=== PATIENT | male | born 1970 | race Two or more races ===

== ENCOUNTER 2017-09-07 22:41 | Emergency (ER) | payer OTHER ==
[2017-09-07] MEDS ORDERED: Tdap Vaccine 0.5 ml Vial (10-64 yrs) IM ONE (23:17)
--- NOTE | 2017-09-07 23:48 | ED PDOC ---
HPI: Psych/Substance Abuse Time Seen by Provider: 09/07/17 22:57 Chief Complaint (Nursing): Alcohol Ingestion Chief Complaint (Provider): Alcohol Ingestion ED Caveat: Intoxicated History Per: Patient (poor historian), EMS History/Exam Limitations: intoxication Onset/Duration Of Symptoms: Days (09/07/17) Current Symptoms Are (Timing): Still Present Modifying Factor(s): Alcohol Additional Complaint(s): 47 year old male was brought into the ED by EMS for evaluation of alcohol intoxication. Patient was drunk and found by police walking unsteady, stumbling on the street. Patient also has multiple abrasions on the body. He is a poor historian and is uncooperative. PMD: No Family Provider Past Medical History Reviewed: Historical Data, Nursing Documentation, Vital Signs Vital Signs: Last Vital Signs Temp Pulse 97 H 09/07/17 23:01 Resp 18 09/07/17 23:01 BP 151/93 H 09/07/17 23:01 Pulse Ox 95 09/07/17 23:01 - Medical History PMH: No Chronic Diseases - Surgical History Surgical History: No Surg Hx - Family History Family History: States: Unknown Family Hx - Allergies Allergies/Adverse Reactions: Allergies Allergy/AdvReac Type Severity Reaction Status Date / Time No Known Allergies Allergy Verified 09/07/17 22:50 Review of Systems ROS Statement: Except As Marked, All Systems Reviewed And Found Negative Skin: Positive for: Other (abrasions on the body) Neurological: Positive for: Other (alcohol intoxication) Physical Exam - Reviewed Nursing Documentation Reviewed: Yes Vital Signs Reviewed: Yes - Physical Exam Appears: Positive for: Well, Non-toxic, No Acute Distress Head Exam: Positive for: ATRAUMATIC, NORMAL INSPECTION, NORMOCEPHALIC Skin: Positive for: Normal Color, Warm, Dry Eye Exam: Positive for: EOMI, Normal appearance, PERRL ENT: Positive for: Other (dry blood on right nostril ) Neck: Positive for: Normal, Painless ROM, Supple. Negative for: Decreased ROM, Limited ROM Cardiovascular/Chest: Positive for: Regular Rate, Rhythm. Negative for: Murmur Respiratory: Positive for: Normal Breath Sounds. Negative for: Decreased Breath Sounds, Accessory Muscle Use, Wheezing Gastrointestinal/Abdominal: Positive for: Normal Exam, Bowel Sounds, Soft. Negative for: Tenderness Extremity: Positive for: Normal ROM, Other (abrasion on chin, right hand, left thumb). Negative for: Tenderness, Pedal Edema Neurologic/Psych: Positive for: Alert, Oriented (x3), Gait (unsteady), Other ( slurred speech) - ECG O2 Sat by Pulse Oximetry: 95 (RA) Pulse Ox Interpretation: Normal Medical Decision Making Medical Decision Making: Time: 22:58 Initial Impression: Alcohol Intoxication Differential Diagnosis includes but is not limited to: Head and Body Injury Initial Plan: --Head w/o Contrast CT --Alcohol Serum Stat --Drug Screen, Urine --Adacel (10 -64 yrs) 0.5 ml IM --Ativan 2 mg --Haldol 5 mg --1:1 Observation --Restraint: Violent or harm to self/others --Reevaluation Patient will be monitored for sobriety and is on restraint due to agitation. Patient has alcohol induced scoliosis. Time: 00:[address] Oakes pending clinical sobriety. Scribe Attestation: Documented by Priscilla Geller, acting as a scribe for Maida Reyez MD Provider Scribe Attestation: All medical record entries made by the Scribe were at my direction and personally dictated by me. I have reviewed the chart and agree that the record accurately reflects my personal performance of the history, physical exam, medical decision making, and the department course for this patient. I have also personally directed, reviewed, and agree with the discharge instructions and disposition. Disposition - Clinical Impression Clinical Impression: Alcohol abuse - Patient ED Disposition Is Patient to be Admitted: Transfer of Care - Disposition Referrals: [facility] [Outside] Disposition: Transfer of Care Disposition Time: 00:00 Condition: FAIR Instructions: Alcohol Abuse and Alcoholism (DC) Patient Signed Over To: Dipak Oakes Handoff Comments: pending clinical sobriety
--- NOTE | 2017-09-08 00:15 | ED PDOC ---
- ECG O2 Sat by Pulse Oximetry: 95 (RA) Pulse Ox Interpretation: Normal Medical Decision Making Medical Decision Making: Time: 00:00 Patient signed out to me by Dr. Reyez pending clinical sobriety. Time: 01:54 EXAM: CT Head Without Intravenous Contrast FINDINGS: Limitations: Motion artifact - mild. Brain: Minimal atrophy. No definite intracranial hemorrhage. No mass. No definite edema. Ventricles: No hydrocephalus. Bones/joints: No acute fracture. Soft tissues: Unremarkable. Sinuses: Scattered minimal to mild mucosal thickening. Few small retention cysts. Mastoid air cells: No mastoid effusion. Orbits: Unremarkable as visualized. IMPRESSION: 1. No definite acute intracranial abnormality. 2. Incidental/non-acute findings are described above. 0700 Patient is still unsteady on his feet. Will endorse to Dr. Bolton pending sobriety. Scribe Attestation: Documented by Priscilla Geller, acting as a scribe for Dipak Oakes MD Provider Scribe Attestation: All medical record entries made by the Scribe were at my direction and personally dictated by me. I have reviewed the chart and agree that the record accurately reflects my personal performance of the history, physical exam, medical decision making, and the department course for this patient. I have also personally directed, reviewed, and agree with the discharge instructions and disposition. Disposition - Clinical Impression Clinical Impression: Alcohol abuse - POA Present On Arrival: None - Disposition Disposition: Transfer of Care Disposition Time: 07:00 Condition: STABLE Forms: [facility] (Macedonian) Patient Signed Over To: Ashwin Bolton Handoff Comments: pending sobriety
--- NOTE | 2017-09-08 00:54 | CT ---
EXAM: CT Head Without Intravenous Contrast CLINICAL HISTORY: 47 years old, male; Injury or trauma; Fall; Initial encounter; Blunt trauma (contusions or hematomas); Additional info: Head injury TECHNIQUE: Axial computed tomography images of the head/brain without intravenous contrast. All CT scans at this facility use one or more dose reduction techniques, viz.: automated exposure control; ma/kV adjustment per patient size (including targeted exams where dose is matched to indication; i.e. head); or iterative reconstruction technique. Coronal and sagittal reformatted images were created and reviewed. COMPARISON: No relevant prior studies available. FINDINGS: Limitations: Motion artifact - mild. Brain: Minimal atrophy. No definite intracranial hemorrhage. No mass. No definite edema. Ventricles: No hydrocephalus. Bones/joints: No acute fracture. Soft tissues: Unremarkable. Sinuses: Scattered minimal to mild mucosal thickening. Few small retention cysts. Mastoid air cells: No mastoid effusion. Orbits: Unremarkable as visualized. IMPRESSION: 1. No definite acute intracranial abnormality. 2. Incidental/non-acute findings are described above.
--- NOTE | 2017-09-08 07:15 | ED PDOC ---
- ECG O2 Sat by Pulse Oximetry: 95 (RA) - Progress Re-evaluation Time: 08:30 Condition: Improved (Awake alert oreinted x 3 no focal neuro deficits) Medical Decision Making Medical Decision Making: Time: 0700 --Patient was endorsed to provider by Dr. Dipak Oakes. Pending clinical sobriety. Scribe Attestation: Documented by Janeth Bledsoe, acting as a scribe for Ashwin Bolton MD. Provider Scribe Attestation: All medical record entries made by the Scribe were at my direction and personally dictated by me. I have reviewed the chart and agree that the record accurately reflects my personal performance of the history, physical exam, medical decision making, and the department course for this patient. I have also personally directed, reviewed, and agree with the discharge instructions and disposition. Disposition - Clinical Impression Clinical Impression: Alcohol abuse - POA Present On Arrival: None - Disposition Referrals: [facility] [Outside] Disposition: Routine/Home Disposition Time: 08:31 Condition: FAIR Instructions: Alcohol Abuse and Alcoholism (DC) Forms: [employer] ([place])
[2017-09-08 07:34] VITALS: RESP 19
[2017-09-08 08:55] VITALS: BP 120/78; PULSE 78; TEMP 97
[2017-09-08 12:29] VITALS: O2SAT 95
== END 2017-09-08 08:55 | disposition home or self-care (01) ==
LOC: H.ER 22:41
DX: F10.129 Alcohol abuse with intoxication, unspecified (principal); S09.90XA Unspecified injury of head, initial encounter; Y92.89 Other specified places as the place of occurrence of the external cause
CPT/HCPCS: 70450; 80320; 82948; 96372; 99285; J1630